=== PATIENT | female | born 2000 ===

== ENCOUNTER 2021-12-30 07:55 | Day surgery (SDC) | payer OTHER ==
[2021-12-30] MEDS ORDERED: CILOXAN5 ML OTIC (13:58)
== END 2021-12-30 17:00 | disposition home or self-care (01) ==
LOC: CIR.AMB 07:55
PROVIDERS: ATTEND Otolaryngology Otology & Neurotology
DX: H72.02 Central perforation of tympanic membrane, left ear (principal); H90.12 Conductive hearing loss, unilateral, left ear, with unrestricted hearing on the contralateral side; Z20.822 Contact with and (suspected) exposure to COVID-19; Z88.8 Allergy status to other drugs, medicaments and biological substances; J45.909 Unspecified asthma, uncomplicated; Z86.16 Personal history of COVID-19